=== PATIENT | male | born 2000 | race Caucasian/White ===

== ENCOUNTER 2019-04-12 11:51 | Emergency (ER) | payer OTHER ==
[~2019-04-12] VITALS: Ht 185.4 cm; Wt 70.0 kg
[2019-04-12 17:01] VITALS: BP 115/72
== END 2019-04-12 17:01 | disposition home or self-care (01) ==
LOC: ER 11:51
DX: B76.9 Hookworm disease, unspecified (principal)
CPT/HCPCS: 99283